=== PATIENT | female | born 1990 | race Asian ===

== ENCOUNTER 2019-11-08 01:37 | Emergency (ER) | payer BC ==
[~2019-11-08] VITALS: Ht 160 cm; Wt 50.0 kg
[2019-11-08] MEDS ORDERED: SODIUM CHLORIDE 0.9% 1,000 ML IV ONE (02:45)
[2019-11-08 03:24] LABS: BASOPHILS % 0.6 % (0.0-2.0); EOSINOPHILS % 0.6 % (0.0-5.0); HEMOGLOBIN. 13.9 g/dL (12.0-16.0); LYMPHOCYTES % 11.2 % (20.0-50.0); MEAN CORPUSCULAR HEMOGLOBIN 31.6 pg (28.0-32.0); MEAN CORPUSCULAR VOLUME 91.3 fL (81.0-99.0); MEAN PLATELET VOLUME 10.2 fl (7.4-10.4); MONOCYTES % 5.7 % (2.0-8.0); NEUTROPHILS % 81.9 % (40.0-76.0); PLATELET 180 x1000/uL (130-400); RED BLOOD CELL COUNT 4.38 mill/uL (4.2-5.4); RED CELL DISTRIBUTION WIDTH 13.1 % (11.6-14.6)
[2019-11-08 03:25] LABS: CHLORIDE 107 mEq/L (98-107)
[2019-11-08 04:46] VITALS: BP 118/73
== END 2019-11-08 04:48 | disposition home or self-care (01) ==
LOC: ER 01:37
DX: R06.4 Hyperventilation (principal); F41.9 Anxiety disorder, unspecified
CPT/HCPCS: 36415; 71045; 80048; 85025; 93005; 99285; J7030